=== PATIENT | male | born 1965 | race Caucasian/White ===

== ENCOUNTER 2020-01-26 13:14 | Emergency (ER) | payer OTHER, SELFPAY ==
--- NOTE | 2020-01-26 | CT_ITS ---
EXAMINATION: CT ABDOMEN AND PELVIS WITH CONTRAST CLINICAL INFORMATION: Abdominal pain COMPARISON: 04/30/2019 TECHNIQUE: Multidetector volumetric images were obtained from the superior aspect of the liver through the pubic symphysis following administration 85 mL of Omnipaque 350 intravenous contrast. Sagittal and coronal reformatted images were obtained on the technologist's workstation. Oral contrast: No This CT examination was performed using dose optimization techniques as appropriate, variously including the following: *Automated exposure control *Adjustment of mA and/or kV according to patient size (this includes techniques or standardized protocols for targeted exams where dose is matched to indication/reason for exam; i.e. extremities or head) *Use of iterative reconstruction technique DLP: 736 mGy-cm FINDINGS: LUNG BASES: The visualized lung bases are unremarkable. LIVER, GALLBLADDER, AND BILIARY TREE: Nodular slightly heterogeneous liver compatible with cirrhosis, not significantly changed. The gallbladder is partially contracted around multiple gallstones. No biliary ductal dilatation. PANCREAS: Unremarkable. SPLEEN: Splenomegaly has worsened. ADRENAL GLANDS: Unremarkable. KIDNEYS AND URETERS: The kidneys are normal in size, shape, and attenuation. No hydronephrosis, hydroureter, or calculi seen. No perinephric stranding. BLADDER: Unremarkable. GASTROINTESTINAL TRACT: No bowel dilatation to suggest obstruction. Scattered colonic diverticulosis. Small bowel loops and ascites project into right inguinal hernia, into the right scrotum as demonstrated previously. ABDOMINAL WALL: No additional hernia. LYMPH NODES: Normal. VASCULAR: Recanalization of the paraumbilical vein. Portosystemic shunting. The portal vein appears patent. PELVIC VISCERA: Unremarkable. OSSEOUS STRUCTURES: There is a burst fracture of the L3 vertebral body with marked loss of vertebral body height centrally, and retropulsion of the posterior superior aspect of the vertebral body markedly narrowing the central canal. This does not appear acute, although is new since 04/30/2019. In addition, there are nondisplaced fractures of the right and left L3 transverse processes. Some bridging callus formation anteriorly. IMPRESSION: There is a burst fracture of the L3 vertebral body with retropulsion and severe central stenosis which appears subacute, although new since 04/30/2019. Cirrhosis with increasing splenomegaly, portosystemic shunting, and ascites. Small bowel loops and ascites project into the right inguinal hernia/hemiscrotum, similar to the previous study. Cholelithiasis.
--- NOTE | 2020-01-26 | US_ITS ---
EXAMINATION: ABDOMINAL ULTRASOUND CLINICAL INFORMATION: Abdominal pain COMPARISON: CT abdomen pelvis earlier today TECHNIQUE: Ultrasound the abdomen was performed FINDINGS: The pancreas appears unremarkable. The visualized aorta and IVC appear normal. Liver demonstrates increased echogenicity with nodular border and associated ascites. No focal mass or bile duct dilatation is seen. Flow in the portal vein is of normal and hepatopedal. Common bile duct measures 0.4 cm. Marked splenomegaly is present with the spleen measuring 19 cm in greatest length. Small layering gallstones are present in the gallbladder but there is no evidence to suggest cholecystitis. Both kidneys appear normal with the right measuring 10.6 and the left 11.4 cm in length. IMPRESSION: Cirrhotic nodular liver with ascites and associated splenomegaly consistent with portal hypertension. Incidentally noted cholelithiasis. All of these findings were seen on the CT scan performed earlier today
[2020-01-26 13:22] VITALS: BP 133/5; BP 144/70; PULSE 81; PULSE 84; RESP 16; TEMP 36.7; O2SAT 100; BMI 27.3
[2020-01-26 14:21] VITALS: BP 116/55; PULSE 72; RESP 14; TEMP 36.7; O2SAT 98
[2020-01-26] MEDS: 0.9 % Sodium Chloride 1,000 ML 999 ML IVCONT (14:34)
[2020-01-26 14:35] LABS: Basophils Percent Auto 0.5 % (0-2); Eosinophils Absolute Auto 0.2 X10*3/uL (0.0-0.4); Eosinophils Percent Auto 3.5 % (0-4); Hematocrit 25.3 % (42-52); Hemoglobin 8.5 g/dl (14.0-18.0); Imm Gran Abs Auto 0.02 X10*3/uL (0.00-0.03); Imm Gran Pct Auto 0.3 % (0.0-0.4); Lymphocytes Absolute Auto 0.6 X10*3/uL (1.2-4.9); Lymphocytes Percent Auto 9.2 % (20-40); MANUAL DIFF FLAG SCAN; Mean Corpuscular HGB Conc 33.6 g/dl (31.0-36.0); Mean Corpuscular Hemoglobin 33.2 pg (27.0-33.0); Mean Corpuscular Volume 98.8 fL (80-98); Mean Platelet Volume 10.3 fL (9.4-12.4); Monocytes Absolute Auto 0.8 X10*3/uL (0.1-1.2); Monocytes Percent Auto 12.5 % (2-11); Neutrophils Absolute Auto 4.5 X10*3/uL (2.0-8.3); Red Blood Count 2.56 X10*6/uL (4.60-5.80); Red Cell Distribution Width 14.7 % (11.0-16.0); SCAN SMEAR FLAG 1; White Blood Count 6.1 X10*3/uL (4.8-10.8)
[2020-01-26 14:38] LABS: Platelet Count 96 X10*3/uL (160-400)
[2020-01-26] MEDS: Morphine Sulfate 2 MG/ML CARTRIDGE IVPUSH (14:47)
[2020-01-26] MEDS: ondansetron HCL 4 MG/2 ML VIAL IVPUSH (14:47)
[2020-01-26 15:01] LABS: Glucose Urine UA NEG (NEG); Leukocyte Esterase Urine NEG (NEG); Nitrite Urine NEG (NEG); Specific Gravity - Urine 1.015 (1.005-1.025); Urine Blood NEG (NEG); Urine Ketones NEG (NEG); Urine Protein NEG (NEG-TRACE)
[2020-01-26 15:02] LABS: Appearance Urine CLEAR; Color Urine YELLOW; UACC Culture Trigger NO
[2020-01-26 15:03] LABS: SLIDE REVIEW VERIFIED
[2020-01-26 15:10] LABS: Alanine Aminotransferase 18 U/L (0-40); Albumin Level 2.7 g/dL (3.5-5.0); Alkaline Phosphatase 114 U/L (39-117); Aspartate Amino Transferase 42 U/L (5-37); Bilirubin Direct 0.4 mg/dL (0.0-0.5); Bilirubin Total 0.8 mg/dL (0.0-1.0); Blood Urea Nitrogen 6 mg/dL (9-16); Calcium 7.9 mg/dL (8.4-10.2); Creatinine Clr Calc Pharmacy 113.6; Estimated Glomerular Filt Rate > 60; Glucose Random 117 mg/dL (60-115); Lipase 50 U/L (8-78); Magnesium 1.6 mg/dL (1.6-2.6)
[2020-01-26 15:22] LABS: Anion Gap 9 (12-20); Carbon Dioxide 28 mmol/L (22-29); Chloride 104 mmol/L (96-108); Sodium 137 mmol/L (135-145)
--- NOTE | 2020-01-26 15:32 | ED_ITS ---
HPI - Abdominal Pain General Chief Complaint: Abdominal Pain Stated Complaint: ABD PAIN Time Seen by Provider: 01/26/20 13:53 Source: patient Mode of arrival: ambulatory History of Present Illness HPI narrative: 54-year-old male with PMHx alcohol abuse, hernia c/o sudden onset lower abdominal pain radiating to upper abdomen and back this afternoon. Denies fever, chills, nausea / vomiting, diarrhea /constipation, chest pain / shortness of breath, dysuria/hematuria MD elicited complaint: abdominal pain Severity: moderate Quality: cramping Exacerbating factors: movement Related Data Home Medications Medication Instructions Recorded Confirmed No Known Home Meds 01/24/20 Allergies Allergy/AdvReac Type Severity Reaction Status Date / Time No Known Allergies Allergy Verified 01/24/20 10:52 [No Known Allergies*] Review of Systems Review of Systems Constitutional: No Weight loss, No Fever, No Chills, No Night Sweats, No Fatigue Cardiovascular: No Chest Pain, No SOB, No Dyspnea on Exertion, No Orthopnea, No Edema, No Palpitations Respiratory: No Cough, No Sputum, No Wheezing Gastrointestinal: No Nausea, No Vomiting, No Diarrhea, No Constipation, + abdom inal Pain Genitourinary: no irregular bleeding, No Dysuria, No Urinary Frequency, No Hematuria, No Urinary Incontinence, No Urgency, No Flank Pain, No Urinary Flow Changes, No Hesitancy Musculoskeletal: No joint pain Skin: No rash Yes all other systems are reviewed and are negative Physical Exam Vital Signs and I&O and Narrative: Vital Signs and I&O: Vital Signs Temp 98.0 F 01/26/20 16:12 Pulse 79 01/26/20 16:12 Resp 18 01/26/20 16:12 BP 114/45 L 01/26/20 16:12 Pulse Ox 97 01/26/20 16:12 Intake & Output 01/25/20 01/26/20 01/26/20 18:59 06:59 18:59 Intake Total 1000 / 1000 Balance 1000 / 1000 Weight 83.915 kg Intake: Intake, IV Amoun t 1000 / 1000 0.9 % Sodium C hloride 1,000 ml 1000 / 1000 @ 999 mls/hr I VCONT .Q1H1M AL Rx#:[id number] Body Mass Index 27.3 Const: General: cooperative and healthy appearing Orientation/cons ciousness: patient oriented x3 Limitations: no limitations HENMT: Head: Yes normal to inspection Ears: hearing grossly normal bilaterally General nose exam: Normal external nose present Face and sinus: Yes normal facial exam Eyes: General: appearance normal, both eyes and all related structures EOM: EOMs intact bilaterally Neck: Neck: Yes normal visual inspection Resp: Effort & Inspection: normal respiratory effort and no stridor Auscultation: clear to auscultation bilaterally, no crackles, no rales, no rhonchi and no wheezes Cardio: Rate: regular rate Heart sounds: S1 normal heart sound present and S2 normal heart sound present Peripheral pulses: Peripheral pulses 2+ throughout GI: Other: reducible umbilical hernia noted Inspection: Yes normal to inspection Palpation (GI): Soft to palpation, Tenderness to palpation present (GI) ( diffuse today), no guarding and not rigid : General: Yes CVA tenderness ( bilateral) Back/Spine/Pelvis: Back: CVA tenderness ( bilateral) Neuro: General: patient oriented x3 Extrem: General: Yes normal to inspection Course Course Course Narrative: -1551-- H&H lower than baseline>> patient denies bloody / black stools /hematuria labs otherwise unremarkable, UA negative -1649-- CT showing burst fracture of L3 vertebral body which is subacute. Cirrhosis with increasing splenomegaly, portosystemic shunting, and ascites. hernia is similar to previous study which are reproducible on exam low concern for SBP Occult stool negative >> on re-evaluation patient still reports diffuse abdominal pain greater in the epigastrium. Abdomen is soft with diffuse ttp > epigastrum/RUQ >> with shared decision making will obtain RUQ ultrasound and re- evaluate. -1720-- ED care transferred to DESHAWN Nguyen pending ultrasound and re-evaluation MDM - Abdominal Pain MDM Narrative Medical decision making narrative: 54-year-old male with PMHx alcohol abuse, hernia c/o sudden onset lower abdominal pain radiating to upper abdomen and back this afternoon. on exam VSS, NAD / well appearing. Abdomen soft diffusely, no rebound or guarding. Bilateral CVAT. Concern for diverticulitis /appendicitis vs cholecystitis/pancreatitis vs ?renal stone or SBO. Low concern for ACS Plan: Labs, UA, CT AP, symptomatic treatment and reassess Lab Data Result diagrams: 01/26/20 14:29 01/26/20 14:29 Labs: Lab Results 01/26/20 01/26/20 01/26/20 Range/Units 14:29 14:29 14:29 WBC 6.1 (4.8-10.8) X10*3/uL RBC 2.56 L (4.60-5.80) X10*6/uL Hgb 8.5 L (14.0-18.0) g/dl Hct 25.3 L (42-52) % MCV 98.8 H (80-98) fL MCH 33.2 H (27.0-33.0) pg MCHC 33.6 (31.0-36.0) g/dl RDW 14.7 (11.0-16.0) % Plt Count 96 L (160-400) X10*3/uL MPV 10.3 (9.4-12.4) fL Immature Gran % (Auto) 0.3 (0.0-0.4) % Neut % (Auto) 74.0 H (45-73) % Lymph % (Auto) 9.2 L (20-40) % [place] % (Auto) 12.5 H (2-11) % Eos % (Auto) 3.5 (0-4) % Baso % (Auto) 0.5 (0-2) % Neut # (Auto) 4.5 (2.0-8.3) X10*3/uL Lymph # (Auto) 0.6 L (1.2-4.9) X10*3/uL [place] # (Auto) 0.8 (0.1-1.2) X10*3/uL Eos # (Auto) 0.2 (0.0-0.4) X10*3/uL Baso # (Auto) 0.0 (0.0-0.2) X10*3/uL Abs Immat Gran (auto) 0.02 (0.00-0.03) X10*3/uL Absolute Nucleated RBC 0.000 (0.0-0.012) X10*3/uL Nucleated RBC % (auto) 0.0 (0.0-0.2) /100WBC Smear Tech's Comments VERIFIED Hold Blue Top SEE NOTE Sodium 137 (135-145) mmol/L Potassium 4.0 (3.3-5.1) mmol/l Chloride 104 (96-108) mmol/L Carbon Dioxide 28 (22-29) mmol/L Anion Gap 9 L (12-20) BUN 6 L (9-16) mg/dL Creatinine 0.76 (0.5-1.4) mg/dL Estim Creat Clear Calc 113.6 Estimated GFR > 60 Random Glucose 117 H (60-115) mg/dL Calcium 7.9 L (8.4-10.2) mg/dL Magnesium 1.6 (1.6-2.6) mg/dL Total Bilirubin 0.8 (0.0-1.0) mg/dL Direct Bilirubin 0.4 (0.0-0.5) mg/dL AST 42 H (5-37) U/L ALT 18 (0-40) U/L Alkaline Phosphatase 114 (39-117) U/L Total Protein 6.0 L (6.5-8.0) g/dL Albumin 2.7 L (3.5-5.0) g/dL Lipase 50 (8-78) U/L Urine Color Urine Appearance Urine pH (5.0-8.0) Ur Specific [place] (1.005-1.025) Urine Protein (NEG-TRACE) MG/DL Urine Glucose (UA) (NEG) MG/DL Urine Ketones (NEG) MG/DL Urine Blood (NEG) Urine Nitrite (NEG) Ur Leukocyte Esterase (NEG) Stool Occult Blood (NEG) 01/26/20 01/26/20 Range/Units 14:52 16:10 WBC (4.8-10.8) X10*3/uL RBC (4.60-5.80) X10*6/uL Hgb (14.0-18.0) g/dl Hct (42-52) % MCV (80-98) fL MCH (27.0-33.0) pg MCHC (31.0-36.0) g/dl RDW (11.0-16.0) % Plt Count (160-400) X10*3/uL MPV (9.4-12.4) fL Immature Gran % (Auto) (0.0-0.4) % Neut % (Auto) (45-73) % Lymph % (Auto) (20-40) % [place] % (Auto) (2-11) % Eos % (Auto) (0-4) % Baso % (Auto) (0-2) % Neut # (Auto) (2.0-8.3) X10*3/uL Lymph # (Auto) (1.2-4.9) X10*3/uL [place] # (Auto) (0.1-1.2) X10*3/uL Eos # (Auto) (0.0-0.4) X10*3/uL Baso # (Auto) (0.0-0.2) X10*3/uL Abs Immat Gran (auto) (0.00-0.03) X10*3/uL Absolute Nucleated RBC (0.0-0.012) X10*3/uL Nucleated RBC % (auto) (0.0-0.2) /100WBC Smear Tech's Comments Hold Blue Top Sodium (135-145) mmol/L Potassium (3.3-5.1) mmol/l Chloride (96-108) mmol/L Carbon Dioxide (22-29) mmol/L Anion Gap (12-20) BUN (9-16) mg/dL Creatinine (0.5-1.4) mg/dL Estim Creat Clear Calc Estimated GFR Random Glucose (60-115) mg/dL Calcium (8.4-10.2) mg/dL Magnesium (1.6-2.6) mg/dL Total Bilirubin (0.0-1.0) mg/dL Direct Bilirubin (0.0-0.5) mg/dL AST (5-37) U/L ALT (0-40) U/L Alkaline Phosphatase (39-117) U/L Total Protein (6.5-8.0) g/dL Albumin (3.5-5.0) g/dL Lipase (8-78) U/L Urine Color YELLOW Urine Appearance CLEAR Urine pH 6.0 (5.0-8.0) Ur Specific [place] 1.015 (1.005-1.025) Urine Protein NEG (NEG-TRACE) MG/DL Urine Glucose (UA) NEG (NEG) MG/DL Urine Ketones NEG (NEG) MG/DL Urine Blood NEG (NEG) Urine Nitrite NEG (NEG) Ur Leukocyte Esterase NEG (NEG) Stool Occult Blood NEG (NEG) Discharge Plan Discharge Prescriptions: No Action No Known Home Meds RF: 0 PMFSH Past Medical History Source: unable to obtain Medical History (Updated 01/26/20 @ 13:25 by Sadi Ray) ETOH abuse Hernia Social History Social History Alcohol intake: former Smoking Status: Current every day smoker Use of substances other than those prescribed or required for medical reasons: No Advance Directives: No Advance Directives Information Provided: Yes
[2020-01-26] MEDS: iohexoL 350 MG/ML 100 ML INFUS..BTL IV (15:36)
--- NOTE | 2020-01-26 16:04 | ECG_ITS ---
Test Reason : EPIGASTRIC Blood Pressure : / mmHG Vent. Rate : 079 BPM Atrial Rate : 079 BPM P-R Int : 158 ms QRS Dur : 086 ms QT Int : 454 ms P-R-T Axes : 071 000 052 degrees QTc Int : 520 ms Normal sinus rhythm Normal ECG When compared with ECG of 31-MAR-2019 10:22, Heart rate has increased Referred By: Janel Mancera Electronically Signed By:DINAH GONZALEZ MD
[2020-01-26 16:12] VITALS: BP 114/45; PULSE 79; RESP 18; TEMP 36.7; O2SAT 97
[2020-01-26 16:33] LABS: OBS Int Ctl Valid YES; OBS1 NEG (NEG)
--- NOTE | 2020-01-26 17:46 | PC.NURSE ---
OFF UNIT TO US, WILL HOLD TORADOL TILL PT RETURNS
[2020-01-26 18:08] VITALS: BP 125/61; PULSE 75; RESP 18; TEMP 37; O2SAT 96
[2020-01-26] MEDS: Ketorolac Tromethamine 15 MG/ML VIAL IV (18:10)
== END 2020-01-26 19:55 | disposition home or self-care (01) ==
PROVIDERS: Physician Assistant; Emergency Provider Emergency Medicine
DX: R10.9 Unspecified abdominal pain (principal); K70.30 Alcoholic cirrhosis of liver without ascites; F10.10 Alcohol abuse, uncomplicated; K76.89 Other specified diseases of liver; F17.200 Nicotine dependence, unspecified, uncomplicated; R93.2 Abnormal findings on diagnostic imaging of liver and biliary tract; K80.20 Calculus of gallbladder without cholecystitis without obstruction
CPT/HCPCS: 36415; 74177; 76700; 80048; 80076; 81003; 82272; 83690; 83735; 85025; 93005; 96361; 96374; 96375; 99284

== ENCOUNTER 2020-02-14 10:00 | Emergency (ER) | payer OTHER, SELFPAY ==
--- NOTE | 2020-02-14 12:55 | CT_ITS ---
EXAMINATION: CT ABDOMEN AND PELVIS WITH CONTRAST CLINICAL INFORMATION: Lower abdominal pain COMPARISON: None TECHNIQUE: Multidetector volumetric images were obtained from the superior aspect of the liver through the pubic symphysis following administration 85 mL of Omnipaque 350 intravenous contrast. Sagittal and coronal reformatted images were obtained on the technologist's workstation. Oral contrast: No This CT examination was performed using dose optimization techniques as appropriate, variously including the following: *Automated exposure control *Adjustment of mA and/or kV according to patient size (this includes techniques or standardized protocols for targeted exams where dose is matched to indication/reason for exam; i.e. extremities or head) *Use of iterative reconstruction technique DLP: 1245 mGy-cm FINDINGS: LUNG BASES: There is left basilar atelectasis. The heart size is normal. LIVER, GALLBLADDER, AND BILIARY TREE: The liver has lobulated surface, slightly hypodense and without focal lesions. There is diffuse ascites. There are numerous collateral vessels seen along the celiac axis and the GE junction. There are multiple dependent radiopaque gallstones without wall thickening PANCREAS: The head and the body of the pancreas is normal. The tail is atrophic or removed. SPLEEN: Spleen is mildly enlarged 13.8 cm in length. ADRENAL GLANDS: Unremarkable. KIDNEYS AND URETERS: The kidneys are normal in size, shape, and attenuation. No hydronephrosis, hydroureter, or calculi seen. No perinephric stranding. There is a small left 1.4 cm cyst lower pole cortex right kidney BLADDER: Unremarkable. GASTROINTESTINAL TRACT: There is scattered stool and gas seen throughout the colon. The small bowel loops are prominent but nondilated. There is diffuse ascites. Appendix is normal caliber. Small bowel loops and omentum is seen within the right inguinal hernia. No inflammatory changes seen. ABDOMINAL WALL: No significant hernia is appreciated. LYMPH NODES: Normal. VASCULAR: Unremarkable. PELVIC VISCERA: There is a free fluid. No abnormal pelvic mass seen. There is a known right inguinal hernia with small bowel loops and omentum within. OSSEOUS STRUCTURES: There is severe compression fracture deformity L3 vertebra. Acute. CT/CT abdomen pelvis w con IMPRESSION: Cirrhosis, portal hypertension, with multiple varices splenomegaly and diffuse ascites. Cholelithiasis without any visible gallbladder wall thickening. Right renal cysts without radiopaque renal calculi or hydronephrosis. There is a right inguinal hernia containing omentum and loop of small bowel within. No major change from previous exam 04/30/2019 New acute fracture compression deformity L3 vertebra. It is new since previous study 04/30/2019
[2020-02-14 12:56] VITALS: BP 113/62; PULSE 56; RESP 14; TEMP 36.6; O2SAT 100; BMI 27.3
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
[2020-02-14 13:23] VITALS: RESP 16
[2020-02-14] MEDS: Morphine Sulfate 4 MG/ML CARTRIDGE IVPUSH (13:23)
[2020-02-14] MEDS: 0.9 % Sodium Chloride 500 ML 1000 ML IV (13:23)
[2020-02-14] MEDS: LORazepam 2 MG/ML VIAL 0.5 MG IVPUSH (13:23)
[2020-02-14 13:25] LABS: MANUAL DIFF FLAG NO
[2020-02-14 13:26] LABS: Basophils Absolute Auto 0.1 X10*3/uL (0.0-0.2); Basophils Percent Auto 0.8 % (0-2); Eosinophils Absolute Auto 0.4 X10*3/uL (0.0-0.4); Eosinophils Percent Auto 3.8 % (0-4); Hematocrit 28.3 % (42-52); Hemoglobin 9.3 g/dl (14.0-18.0); Imm Gran Abs Auto 0.03 X10*3/uL (0.00-0.03); Imm Gran Pct Auto 0.3 % (0.0-0.4); Lymphocytes Absolute Auto 1.3 X10*3/uL (1.2-4.9); Lymphocytes Percent Auto 13.7 % (20-40); Mean Corpuscular HGB Conc 32.9 g/dl (31.0-36.0); Mean Corpuscular Hemoglobin 31.1 pg (27.0-33.0); Mean Corpuscular Volume 94.6 fL (80-98); Mean Platelet Volume 10.7 fL (9.4-12.4); Monocytes Percent Auto 11.2 % (2-11); Neutrophils Absolute Auto 6.4 X10*3/uL (2.0-8.3); Neutrophils Percent Auto 70.2 % (45-73); Platelet Count 161 X10*3/uL (160-400); Red Blood Count 2.99 X10*6/uL (4.60-5.80); Red Cell Distribution Width 15.7 % (11.0-16.0); White Blood Count 9.1 X10*3/uL (4.8-10.8)
[2020-02-14 13:34] LABS: Glucose Urine UA NEG (NEG); Leukocyte Esterase Urine NEG (NEG); Nitrite Urine NEG (NEG); PH 6.5 (5.0-8.0); Urine Blood NEG (NEG); Urine Ketones NEG (NEG); Urine Protein NEG (NEG-TRACE)
[2020-02-14 13:37] LABS: Appearance Urine HAZY; Color Urine YELLOW
[2020-02-14 13:52] LABS: Lactic Acid 1.3 mmol/L (0.5-2.0)
[2020-02-14 13:55] LABS: RBC Urine 0 /HPF (0); WBC Urine 0 /HPF (0-4)
[2020-02-14 13:58] LABS: INTERNATIONAL NORM RATIO 1.4 (0.9-1.1); Prothrombin Time 17.1 SEC (10.8-13.0)
[2020-02-14 14:26] LABS: Alanine Aminotransferase 11 U/L (0-40); Albumin Level 2.6 g/dL (3.5-5.0); Alkaline Phosphatase 132 U/L (39-117); Anion Gap 12 (12-20); Aspartate Amino Transferase 47 U/L (5-37); Bilirubin Total 1.5 mg/dL (0.0-1.0); Blood Urea Nitrogen 6 mg/dL (9-16); Carbon Dioxide 28 mmol/L (22-29); Chloride 100 mmol/L (96-108); Creatinine Clr Calc Pharmacy 115.2; Estimated Glomerular Filt Rate > 60; Glucose Random 93 mg/dL (60-115); Potassium 4.4 mmol/l (3.3-5.1); Sodium 136 mmol/L (135-145); Total Protein 6.9 g/dL (6.5-8.0)
[2020-02-14] MEDS: iohexoL 350 MG/ML 100 ML INFUS..BTL IV (14:57)
== END 2020-02-14 17:50 | disposition home or self-care (01) ==
PROVIDERS: Nurse Practitioner Primary Care; Emergency Provider Internal Medicine; PCP Family Medicine
DX: K40.20 Bilateral inguinal hernia, without obstruction or gangrene, not specified as recurrent (principal); Z79.899 Other long term (current) drug therapy; Z87.891 Personal history of nicotine dependence
CPT/HCPCS: 36415; 74177; 80053; 81001; 83605; 85025; 85610; 85730; 96374; 96375; 99283; 99284; J2060; J2270

== ENCOUNTER → 2020-02-23 14:56 | Outpatient (BNVA) | payer OTHER, SELFPAY | PROVIDERS: PCP Family Medicine; Visit Provider Surgery | DX: K40.90 Unilateral inguinal hernia, without obstruction or gangrene, not specified as recurrent (principal); K70.30 Alcoholic cirrhosis of liver without ascites | CPT/HCPCS: 99202 ==

== ENCOUNTER 2020-03-21 09:22 | Outpatient (REF) | payer MEDICAID, SELFPAY ==
[2020-03-21 10:04] LABS: MANUAL DIFF FLAG NO
[2020-03-21 10:09] LABS: Basophils Percent Auto 0.5 % (0-2); Eosinophils Absolute Auto 0.3 X10*3/uL (0.0-0.4); Eosinophils Percent Auto 4.8 % (0-4); Hematocrit 23.8 % (42-52); Hemoglobin 7.5 g/dl (14.0-18.0); Imm Gran Abs Auto 0.05 X10*3/uL (0.00-0.03); Imm Gran Pct Auto 0.8 % (0.0-0.4); Lymphocytes Absolute Auto 0.8 X10*3/uL (1.2-4.9); Lymphocytes Percent Auto 13.3 % (20-40); Mean Corpuscular HGB Conc 31.5 g/dl (31.0-36.0); Mean Corpuscular Volume 88.8 fL (80-98); Mean Platelet Volume 11.3 fL (9.4-12.4); Monocytes Absolute Auto 0.7 X10*3/uL (0.1-1.2); Monocytes Percent Auto 11.8 % (2-11); Neutrophils Absolute Auto 4.1 X10*3/uL (2.0-8.3); Neutrophils Percent Auto 68.8 % (45-73); Platelet Count 142 X10*3/uL (160-400); Red Blood Count 2.68 X10*6/uL (4.60-5.80); Red Cell Distribution Width 17.4 % (11.0-16.0)
[2020-03-21 10:22] LABS: INTERNATIONAL NORM RATIO 1.3 (0.9-1.1)
[2020-03-21 10:24] LABS: Ammonia 44 umol/L (13-55)
[2020-03-21 10:55] LABS: Alanine Aminotransferase 7 U/L (0-40); Albumin Level 2.4 g/dL (3.5-5.0); Alkaline Phosphatase 131 U/L (39-117); Anion Gap 10 (12-20); Aspartate Amino Transferase 25 U/L (5-37); Bilirubin Direct 0.4 mg/dL (0.0-0.5); Bilirubin Total 0.9 mg/dL (0.0-1.0); Blood Urea Nitrogen 6 mg/dL (9-16); Calcium 7.7 mg/dL (8.4-10.2); Carbon Dioxide 29 mmol/L (22-29); Chloride 100 mmol/L (96-108); Estimated Glomerular Filt Rate > 60; Glucose Random 115 mg/dL (60-115); Iron 24 mcg/dL (45-160); Percent Iron Saturation 7 % (15-50); Sodium 135 mmol/L (135-145); Total Iron Binding Capacity 324 mcg/dL (228-428); Total Protein 6.4 g/dL (6.5-8.0); Unsaturated Iron Binding 300 ug/dL
[2020-03-21 11:13] LABS: HBS Num1 1.11 mIU/mL (0-7.99); HBc Num1 1.22 S/CO (0.00-0.79); Hepatitis B Surface Antigen Negative (Negative); ~Hepatitis B Surface Antibody NONREACTIVE (Nonreactive)
[2020-03-21 11:18] LABS: Ferritin 16 ng/mL (20-250)
[2020-03-21 11:37] LABS: ~Hepatitis C Antibody Nonreactive (Nonreactive)
[2020-03-21 13:21] LABS: HBc Num2 1.21 S/CO; HBc Num3 1.22 S/CO; Hepatitis B Core Antibody Reactive (Nonreactive)
[2020-03-22 07:48] LABS: Hepatitis A Antibody IgG REACTIVE (Nonreactive); ~Hepatitis A Antibody IgG 1.39 S/CO (0.00-0.99)
[2020-03-22 13:47] LABS: Alpha 1 Anti-trypsin 174 mg/dL (83-199)
[2020-03-23 05:18] LABS: Hepatitis B Core Antibody IgM NON-REACTIVE (NON-REACTIVE)
[2020-03-23 13:27] LABS: Alpha Fetoprotein 2.7 ng/mL (<6.1); Anti Nuclear Antibody Screen NEGATIVE (NEGATIVE)
[2020-03-24 15:13] LABS: Mitochondrial Antibodies NEGATIVE (NEGATIVE)
[2020-03-26 09:22] LABS: Smooth Muscle Antibody <20 U (<20)
== END 2020-03-21 09:23 | disposition home or self-care (01) ==
LOC: HO.LAB 09:22
PROVIDERS: PCP Family Medicine; Visit Provider Internal Medicine
DX: Z01.84 Encounter for antibody response examination (principal); K70.31 Alcoholic cirrhosis of liver with ascites
CPT/HCPCS: 36415; 80048; 80076; 82103; 82105; 82140; 82728; 83540; 85025; 85610; 86038; 86039; 86255; 86256; 86704; 86705; 86706; 86708; 86803; 87340

== ENCOUNTER 2020-04-13 07:55 | Outpatient (REF) | payer OTHER, SELFPAY ==
--- NOTE | 2020-04-13 | US_ITS ---
EXAMINATION: US ABDOMEN COMPLETE WITH VISCERAL DOPPLER STUDY CLINICAL INFORMATION: Cirrhosis. Question portal vein thrombosis. COMPARISON: None TECHNIQUE: Real-time imaging of the abdominal viscera. Real-time ultrasound and Doppler techniques (integrating B-mode 2D vascular images, Doppler spectral analysis and color flow Doppler imaging) were utilized to interrogate the visceral vessels. FINDINGS: Study is somewhat limited due to large body habitus and overlying bowel gas. Vascular: There is recanalization of the umbilical vein. A few portal varices are present. The extrahepatic portal vein is patent with hepatopedal flow. The left portal vein is patent with hepatopedal flow. The right portal vein is thrombosed with trickle flow. The splenic vein is patent with hepatopedal flow. Main hepatic artery is patent with antegrade flow and elevated peak systolic velocity of 211 cm/s. The left hepatic artery was not definitely identified. The right hepatic artery has antegrade flow within it. There is flow within the inferior vena cava. The hepatic veins are difficult to study with the right and left hepatic veins appearing normal as well as flow in the middle hepatic vein with limited visualization. PANCREAS: No abnormal pancreatic mass identified. Pancreatic duct is not dilated. ABDOMINAL AORTA: The proximal, mid, and distal segments are normal in caliber. INFERIOR VENA CAVA: Visualized portions are normal. LIVER: Liver measures approximately 16.2 cm in vertical span. There is a coarsened echotexture consistent with cirrhosis. The liver contour is nodular. No focal hepatic lesion. There is no intrahepatic biliary duct dilatation seen. GALLBLADDER: There is layering of a small gallbladder calculi. There are a few cholesterol polyps present. No wall thickening is appreciated. COMMON BILE DUCT: Normal in caliber measuring 0.3 cm in diameter. RIGHT KIDNEY: Normal. No hydronephrosis. No renal calculi or focal parenchymal lesions. The kidney measures 10.9 cm in maximum dimension. LEFT KIDNEY: Normal. No hydronephrosis. No renal calculi or focal parenchymal lesions. The kidney measures 11.3 cm in maximum dimension. SPLEEN: Enlarged. The spleen measures 18 cm in maximum dimension. FREE FLUID: There is a small amount of ascites present. US/US duplex arterial venous comp IMPRESSION: Hepatic cirrhosis with portal hypertension recanalization of the umbilical vein with hepatopedal flow present within the main portal vein and left portal vein. Patent splenic vein. Occlusion of the right portal vein. Elevated velocity within the proper hepatic artery. Splenomegaly. Small amount of ascites.
== END 2020-04-13 07:56 | disposition home or self-care (01) ==
LOC: HO.US 07:55
PROVIDERS: PCP Family Medicine; Visit Provider Internal Medicine
DX: K70.31 Alcoholic cirrhosis of liver with ascites (principal)
CPT/HCPCS: 76700; 93975

== ENCOUNTER 2020-04-27 10:18 | Outpatient (REF) | payer OTHER, SELFPAY ==
--- NOTE | 2020-04-27 | MR_ITS ---
EXAMINATION: MR ABDOMEN WITHOUT AND WITH CONTRAST CLINICAL INFORMATION: Alcoholic cirrhosis and portal vein thrombus COMPARISON: Previous abdominal ultrasound most recent March [address] of the abdomen and pelvis most recent January 2020 TECHNIQUE: MR abdomen was performed without and with use of 10 mL intravenous Gadavist gadolinium contrast. Postcontrast images are performed in multiphase dynamic sequences. Imaging was performed in 3 planes. FINDINGS: LUNG BASES: The visualized lung bases are clear. There is a prominent right retrocrural lymph node that appears unchanged. There are small paraesophageal varices. LIVER, GALLBLADDER, AND BILIARY TREE: The liver is cirrhotic. No focal liver lesion is seen. The main portal vein is patent. There are paraesophageal and upper abdominal varices. There is a recannulized paraumbilical vein. There is a small amount of ascites. There are gallstones in the gallbladder. The gallbladder is normal in size. The gallbladder wall does not appear thickened. There is no intra or extrahepatic biliary duct dilatation. No common bile duct stone is seen. PANCREAS: Unremarkable. SPLEEN: The spleen is enlarged and measures 15 cm in length. ADRENAL GLANDS: Normal. KIDNEYS AND URETERS: There is a 2 cm cyst in the lower pole of the right kidney. GASTROINTESTINAL TRACT: There is mild diverticulosis of the colon. ABDOMINAL WALL: There is an umbilical hernia containing fat. LYMPH NODES: No lymphadenopathy. VASCULAR: Unremarkable. OSSEOUS STRUCTURES: There is an L3 vertebral body compression fracture. There is slight retropulsion of bone into the spinal canal. This is unchanged from previous CT January 2020 MR/MR abdomen wo/w con IMPRESSION: Cirrhotic appearing liver, splenomegaly, varices and small amount of ascites. The main portal vein is patent. No focal liver lesion is seen. Gallstones. Right renal cyst. L3 vertebral body compression fracture.
[2020-04-27 12:55] LABS: MANUAL DIFF FLAG NO
[2020-04-27 13:03] LABS: Basophils Percent Auto 0.5 % (0-2); Eosinophils Absolute Auto 0.3 X10*3/uL (0.0-0.4); Hematocrit 33.5 % (42-52); Hemoglobin 10.6 g/dl (14.0-18.0); Imm Gran Abs Auto 0.08 X10*3/uL (0.00-0.03); Lymphocytes Absolute Auto 0.9 X10*3/uL (1.2-4.9); Lymphocytes Percent Auto 11.4 % (20-40); Mean Corpuscular HGB Conc 31.6 g/dl (31.0-36.0); Mean Corpuscular Hemoglobin 29.1 pg (27.0-33.0); Mean Platelet Volume 11.8 fL (9.4-12.4); Monocytes Absolute Auto 0.8 X10*3/uL (0.1-1.2); Monocytes Percent Auto 9.8 % (2-11); Neutrophils Absolute Auto 5.9 X10*3/uL (2.0-8.3); Neutrophils Percent Auto 73.3 % (45-73); Platelet Count 113 X10*3/uL (160-400); Red Blood Count 3.64 X10*6/uL (4.60-5.80); Red Cell Distribution Width 22.2 % (11.0-16.0)
[2020-04-27 13:09] LABS: INTERNATIONAL NORM RATIO 1.2 (0.9-1.1); Prothrombin Time 14.4 SEC (10.8-13.0)
[2020-04-27 13:26] LABS: Alanine Aminotransferase 11 U/L (0-40); Albumin Level 2.8 g/dL (3.5-5.0); Alkaline Phosphatase 124 U/L (39-117); Anion Gap 14 (12-20); Aspartate Amino Transferase 37 U/L (5-37); Bilirubin Direct 0.5 mg/dL (0.0-0.5); Blood Urea Nitrogen 7 mg/dL (9-16); Calcium 8.3 mg/dL (8.4-10.2); Carbon Dioxide 26 mmol/L (22-29); Chloride 101 mmol/L (96-108); Estimated Glomerular Filt Rate > 60; Glucose Random 85 mg/dL (60-115); Iron 70 mcg/dL (45-160); Percent Iron Saturation 22 % (15-50); Potassium 3.9 mmol/l (3.3-5.1); Sodium 137 mmol/L (135-145); Total Iron Binding Capacity 323 mcg/dL (228-428); Total Protein 7.1 g/dL (6.5-8.0); Unsaturated Iron Binding 253 ug/dL
[2020-04-27 14:43] LABS: Ferritin 57 ng/mL (20-250)
== END 2020-04-27 10:19 | disposition home or self-care (01) ==
LOC: HO.MRI 10:18
PROVIDERS: Visit Provider Internal Medicine
DX: K70.31 Alcoholic cirrhosis of liver with ascites (principal); I81 Portal vein thrombosis
CPT/HCPCS: 36415; 74183; 80053; 80076; 82248; 82728; 83540; 85025; 85610; A9585

== ENCOUNTER 2020-06-08 10:23 | Outpatient (REF) | payer OTHER, SELFPAY ==
[2020-06-08 14:01] LABS: MANUAL DIFF FLAG SCAN; Red Cell Distribution Width 16.7 % (11.0-16.0); SCAN SMEAR FLAG 1
[2020-06-08 14:03] LABS: Basophils Absolute Auto 0.1 X10*3/uL (0.0-0.2); Eosinophils Absolute Auto 0.3 X10*3/uL (0.0-0.4); Eosinophils Percent Auto 4.8 % (0-4); Hematocrit 39.2 % (42-52); Hemoglobin 12.9 g/dl (14.0-18.0); Imm Gran Abs Auto 0.03 X10*3/uL (0.00-0.03); Imm Gran Pct Auto 0.4 % (0.0-0.4); Lymphocytes Absolute Auto 1.2 X10*3/uL (1.2-4.9); Lymphocytes Percent Auto 16.5 % (20-40); Mean Corpuscular HGB Conc 32.9 g/dl (31.0-36.0); Mean Corpuscular Hemoglobin 30.9 pg (27.0-33.0); Mean Corpuscular Volume 93.8 fL (80-98); Monocytes Absolute Auto 0.7 X10*3/uL (0.1-1.2); Monocytes Percent Auto 9.1 % (2-11); Neutrophils Absolute Auto 4.9 X10*3/uL (2.0-8.3); Neutrophils Percent Auto 68.2 % (45-73); PLT CLUMP 1; Red Blood Count 4.18 X10*6/uL (4.60-5.80)
[2020-06-08 14:11] LABS: INTERNATIONAL NORM RATIO 1.2 (0.9-1.1); Prothrombin Time 14.8 SEC (10.8-13.0)
[2020-06-08 14:12] LABS: PLT ABN DIST 1
[2020-06-08 14:13] LABS: Partial Thromboplastin Time 48.6 SEC (24.1-38.0)
[2020-06-08 14:27] LABS: Platelet Count 93 X10*3/uL (160-400); White Blood Count 7.1 X10*3/uL (4.8-10.8)
[2020-06-08 14:28] LABS: SLIDE REVIEW VERIFIED
[2020-06-08 14:33] LABS: Alanine Aminotransferase 18 U/L (0-40); Albumin Level 3.3 g/dL (3.5-5.0); Alkaline Phosphatase 115 U/L (39-117); Anion Gap 13 (12-20); Aspartate Amino Transferase 40 U/L (5-37); Blood Urea Nitrogen 9 mg/dL (9-16); Calcium 8.7 mg/dL (8.4-10.2); Carbon Dioxide 28 mmol/L (22-29); Chloride 101 mmol/L (96-108); Estimated Glomerular Filt Rate > 60; Glucose Random 104 mg/dL (60-115); Sodium 138 mmol/L (135-145); Total Protein 7.3 g/dL (6.5-8.0)
== END 2020-06-08 10:24 | disposition home or self-care (01) ==
LOC: HO.WFDLDS 10:23
PROVIDERS: Visit Provider Family Medicine
DX: K42.9 Umbilical hernia without obstruction or gangrene (principal); D64.9 Anemia, unspecified
CPT/HCPCS: 36415; 80053; 85025; 85610; 85730

== ENCOUNTER → 2020-06-19 11:25 | Outpatient (BNVA) | payer OTHER, SELFPAY | PROVIDERS: PCP Family Medicine; Visit Provider Surgery | DX: K40.90 Unilateral inguinal hernia, without obstruction or gangrene, not specified as recurrent (principal); K70.30 Alcoholic cirrhosis of liver without ascites | CPT/HCPCS: 99202 ==

== ENCOUNTER 2020-06-20 11:11 | Outpatient (REF) | payer OTHER, SELFPAY ==
[2020-06-20 13:44] LABS: Basophils Percent Auto 0.6 % (0-2); MANUAL DIFF FLAG SCAN; SCAN SMEAR FLAG 1
[2020-06-20 13:46] LABS: Basophils Absolute Auto 0.1 X10*3/uL (0.0-0.2); Eosinophils Absolute Auto 0.2 X10*3/uL (0.0-0.4); Eosinophils Percent Auto 1.9 % (0-4); Hematocrit 38.6 % (42-52); Imm Gran Abs Auto 0.04 X10*3/uL (0.00-0.03); Imm Gran Pct Auto 0.4 % (0.0-0.4); Lymphocytes Absolute Auto 0.9 X10*3/uL (1.2-4.9); Lymphocytes Percent Auto 9.8 % (20-40); Mean Corpuscular HGB Conc 33.7 g/dl (31.0-36.0); Mean Corpuscular Hemoglobin 31.3 pg (27.0-33.0); Mean Corpuscular Volume 92.8 fL (80-98); Monocytes Absolute Auto 0.9 X10*3/uL (0.1-1.2); Monocytes Percent Auto 9.1 % (2-11); Neutrophils Absolute Auto 7.4 X10*3/uL (2.0-8.3); Neutrophils Percent Auto 78.2 % (45-73); PLT CLUMP 1; Red Blood Count 4.16 X10*6/uL (4.60-5.80); Red Cell Distribution Width 16.1 % (11.0-16.0)
[2020-06-20 13:49] LABS: PLT ABN DIST 1; White Blood Count 9.4 X10*3/uL (4.8-10.8)
[2020-06-20 13:52] LABS: INTERNATIONAL NORM RATIO 1.2 (0.9-1.1); Prothrombin Time 14.6 SEC (10.8-13.0)
[2020-06-20 14:20] LABS: Platelet Count 80 X10*3/uL (160-400)
[2020-06-20 14:21] LABS: Alanine Aminotransferase 15 U/L (0-40); Albumin Level 3.5 g/dL (3.5-5.0); Alkaline Phosphatase 114 U/L (39-117); Anion Gap 13 (12-20); Aspartate Amino Transferase 44 U/L (5-37); Bilirubin Total 1.3 mg/dL (0.0-1.0); Blood Urea Nitrogen 8 mg/dL (9-16); Calcium 8.7 mg/dL (8.4-10.2); Carbon Dioxide 26 mmol/L (22-29); Chloride 98 mmol/L (96-108); Estimated Glomerular Filt Rate > 60; Glucose Random 91 mg/dL (60-115); Potassium 4.3 mmol/L (3.3-5.1); SLIDE REVIEW VERIFIED; Sodium 133 mmol/L (135-145); Total Protein 7.5 g/dL (6.5-8.0)
== END 2020-06-20 11:12 | disposition home or self-care (01) ==
LOC: HO.WFDLDS 11:11
PROVIDERS: Visit Provider Family Medicine
DX: K70.30 Alcoholic cirrhosis of liver without ascites (principal); D64.9 Anemia, unspecified; K40.90 Unilateral inguinal hernia, without obstruction or gangrene, not specified as recurrent
CPT/HCPCS: 36415; 80053; 85025; 85610

== ENCOUNTER 2020-07-26 12:11 | Outpatient (REF) | payer OTHER, SELFPAY ==
[2020-07-26 18:19] LABS: Blood Urea Nitrogen 4 mg/dL (9-16); Estimated Glomerular Filt Rate > 60
== END 2020-07-26 12:12 | disposition home or self-care (01) ==
LOC: HO.LAB 12:11
PROVIDERS: PCP Family Medicine; Visit Provider Surgery
DX: K70.30 Alcoholic cirrhosis of liver without ascites (principal); K40.90 Unilateral inguinal hernia, without obstruction or gangrene, not specified as recurrent
CPT/HCPCS: 36415; 82565; 84520; 99212

== ENCOUNTER 2020-08-15 10:10 | Outpatient (REF) | payer OTHER, SELFPAY ==
--- NOTE | ~2020-08-15 | CT_ITS ---
EXAMINATION: CT ABDOMEN AND PELVIS WITH CONTRAST CLINICAL INFORMATION: Alcoholic cirrhosis of liver COMPARISON: Previous MRI of the abdomen April [address] of the abdomen and pelvis most recent January 2020 and abdominal ultrasound most recent January 2020 TECHNIQUE: Multidetector volumetric images were obtained from the superior aspect of the liver through the pubic symphysis following administration 85 mL of Omnipaque 350 intravenous contrast. Sagittal and coronal reformatted images were obtained on the technologist's workstation. Oral contrast: Yes This CT examination was performed using dose optimization techniques as appropriate, variously including the following: *Automated exposure control *Adjustment of mA and/or kV according to patient size (this includes techniques or standardized protocols for targeted exams where dose is matched to indication/reason for exam; i.e. extremities or head) *Use of iterative reconstruction technique DLP: 602 mGy-cm FINDINGS: LUNG BASES: The visualized lung bases are unremarkable. LIVER, GALLBLADDER, AND BILIARY TREE: The liver is cirrhotic. No focal liver lesion is seen. The hepatic veins and portal veins are patent. There are extensive varices. There is a recannulized paraumbilical vein. There are gallstones in the gallbladder. There is no intra or extrahepatic biliary duct dilatation. PANCREAS: Unremarkable. SPLEEN: The spleen is enlarged and measures 14.5 cm in length. ADRENAL GLANDS: Unremarkable. KIDNEYS AND URETERS: There is a right renal cyst. The kidneys are otherwise unremarkable. BLADDER: Unremarkable. GASTROINTESTINAL TRACT: There is a right inguinal hernia containing small bowel. There are no dilated loops of bowel to suggest obstruction. The small and large bowel is otherwise unremarkable. The stomach is not optimally distended. There is question of mild wall thickening of the proximal stomach versus changes due to underdistention. ABDOMINAL WALL: Right inguinal hernia containing small bowel. LYMPH NODES: Normal. VASCULAR: There is evidence of atherosclerotic disease. No aneurysm is seen. There are extensive varices seen there is no ascites. PELVIC VISCERA: Unremarkable. OSSEOUS STRUCTURES: There is a severe L3 vertebral body compression fracture with some retropulsion of bone into the spinal canal. This appears unchanged from previous CT scan. CT/CT abdomen pelvis w con IMPRESSION: Cirrhotic-appearing liver. No focal liver lesion seen. Gallstones. Splenomegaly and multiple varices. No ascites. Large right inguinal hernia containing small bowel. No evidence of obstruction. Question wall thickening of the proximal stomach versus changes due to underdistention. Stable severe L3 vertebral body compression fracture. Stable right renal cyst.
[2020-08-15] MEDS: iohexoL 350 MG/ML 100 ML INFUS..BTL IV (11:19)
== END 2020-08-15 10:11 | disposition home or self-care (01) ==
LOC: HO.CT 10:10
PROVIDERS: Visit Provider Surgery
DX: K70.30 Alcoholic cirrhosis of liver without ascites (principal)
CPT/HCPCS: 74177; Q9967

== ENCOUNTER → 2020-09-04 08:23 | Outpatient (BNVA) | payer OTHER, SELFPAY | PROVIDERS: PCP Family Medicine; Visit Provider Surgery | DX: K40.90 Unilateral inguinal hernia, without obstruction or gangrene, not specified as recurrent (principal) | CPT/HCPCS: 99212 ==

== ENCOUNTER 2020-09-27 13:45 | Outpatient (REF) | payer OTHER, SELFPAY ==
[2020-09-27 14:19] LABS: MANUAL DIFF FLAG SCAN; PLT CLUMP 1; SCAN SMEAR FLAG 1
[2020-09-27 14:21] LABS: Basophils Percent Auto 0.6 % (0-2); Eosinophils Absolute Auto 0.2 X10*3/uL (0.0-0.4); Eosinophils Percent Auto 3.7 % (0-4); Hematocrit 35.4 % (42-52); Hemoglobin 12.2 g/dl (14.0-18.0); Imm Gran Abs Auto 0.02 X10*3/uL (0.00-0.03); Imm Gran Pct Auto 0.3 % (0.0-0.4); Lymphocytes Percent Auto 14.7 % (20-40); Mean Corpuscular HGB Conc 34.5 g/dl (31.0-36.0); Mean Corpuscular Hemoglobin 31.2 pg (27.0-33.0); Mean Corpuscular Volume 90.5 fL (80-98); Mean Platelet Volume 11.5 fL (9.4-12.4); Monocytes Absolute Auto 0.6 X10*3/uL (0.1-1.2); Monocytes Percent Auto 8.8 % (2-11); Neutrophils Absolute Auto 4.7 X10*3/uL (2.0-8.3); Neutrophils Percent Auto 71.9 % (45-73); Red Blood Count 3.91 X10*6/uL (4.60-5.80); Red Cell Distribution Width 15.7 % (11.0-16.0); White Blood Count 6.5 X10*3/uL (4.8-10.8)
[2020-09-27 14:22] LABS: Platelet Count 84 X10*3/uL (160-400)
[2020-09-27 14:23] LABS: INTERNATIONAL NORM RATIO 1.2 (0.9-1.1); Prothrombin Time 14.3 SEC (10.8-13.0)
[2020-09-27 15:54] LABS: Ammonia 71 umol/L (13-55)
[2020-09-27 16:06] LABS: Alanine Aminotransferase 13 U/L (0-40); Albumin Level 3.4 g/dL (3.5-5.0); Alkaline Phosphatase 95 U/L (39-117); Anion Gap 12 (12-20); Aspartate Amino Transferase 39 U/L (5-37); Bilirubin Direct 0.4 mg/dL (0.0-0.5); Blood Urea Nitrogen 7 mg/dL (9-16); Calcium 9.1 mg/dL (8.4-10.2); Carbon Dioxide 24 mmol/L (22-29); Chloride 103 mmol/L (96-108); Estimated Glomerular Filt Rate > 60; Glucose Random 109 mg/dL (60-115); Iron 101 mcg/dL (45-160); Percent Iron Saturation 30 % (15-50); Potassium 4.1 mmol/L (3.3-5.1); Sodium 135 mmol/L (135-145); Total Iron Binding Capacity 336 mcg/dL (228-428); Total Protein 6.8 g/dL (6.5-8.0); Unsaturated Iron Binding 235 ug/dL
[2020-09-27 16:59] LABS: Ferritin 72 ng/mL (20-250)
[2020-09-28 11:57] LABS: Alpha Fetoprotein 4.9 ng/mL (<6.1)
== END 2020-09-27 13:46 | disposition home or self-care (01) ==
LOC: HO.LAB 13:45
PROVIDERS: PCP Family Medicine; Visit Provider Internal Medicine
DX: K70.31 Alcoholic cirrhosis of liver with ascites (principal); I85.00 Esophageal varices without bleeding; D64.9 Anemia, unspecified; D50.9 Iron deficiency anemia, unspecified
CPT/HCPCS: 36415; 80048; 80076; 82105; 82140; 82728; 83540; 85025; 85610

== ENCOUNTER → 2020-10-31 11:11 | Outpatient (BNVA) | payer OTHER, SELFPAY | PROVIDERS: PCP Family Medicine; Visit Provider Nurse Practitioner Family | DX: M47.816 Spondylosis without myelopathy or radiculopathy, lumbar region (principal); M53.3 Sacrococcygeal disorders, not elsewhere classified; K70.30 Alcoholic cirrhosis of liver without ascites; S32.000D Wedge compression fracture of unspecified lumbar vertebra, subsequent encounter for fracture with routine healing | CPT/HCPCS: 99202 ==

== ENCOUNTER 2021-02-23 14:58 | Outpatient (REF) | payer OTHER, SELFPAY ==
[2021-02-23 15:13] LABS: MANUAL DIFF FLAG NO
[2021-02-23 15:15] LABS: Basophils Absolute Auto 0.1 X10*3/uL (0.0-0.2); Basophils Percent Auto 0.5 % (0-2); Eosinophils Absolute Auto 0.3 X10*3/uL (0.0-0.4); Eosinophils Percent Auto 2.5 % (0-4); Hemoglobin 10.8 g/dl (14.0-18.0); Imm Gran Abs Auto 0.05 X10*3/uL (0.00-0.03); Imm Gran Pct Auto 0.4 % (0.0-0.4); Lymphocytes Absolute Auto 1.2 X10*3/uL (1.2-4.9); Lymphocytes Percent Auto 10.2 % (20-40); Mean Corpuscular HGB Conc 32.7 g/dl (31.0-36.0); Mean Corpuscular Hemoglobin 31.4 pg (27.0-33.0); Mean Corpuscular Volume 95.9 fL (80.0-98.0); Mean Platelet Volume 11.4 fL (9.4-12.4); Monocytes Absolute Auto 0.8 X10*3/uL (0.1-1.2); Neutrophils Absolute Auto 9.1 x10*3/uL (2.0-8.3); Neutrophils Percent Auto 79.4 % (45-73); Platelet Count 116 X10*3/uL (160-400); Red Blood Count 3.44 X10*6/uL (4.60-5.80); Red Cell Distribution Width 15.7 % (11.0-16.0); White Blood Count 11.4 X10*3/uL (4.8-10.8)
[2021-02-23 15:26] LABS: Ammonia 69 umol/L (13-55)
[2021-02-23 15:31] LABS: Anion Gap 14 (12-20); Blood Urea Nitrogen 11 mg/dL (9-16); Calcium 8.9 mg/dL (8.4-10.2); Carbon Dioxide 26 mmol/L (22-29); Chloride 102 mmol/L (96-108); Estimated Glomerular Filt Rate > 60; Glucose Random 101 mg/dL (60-115); Potassium 4.5 mmol/L (3.3-5.1); Sodium 137 mmol/L (135-145)
== END 2021-02-23 14:59 | disposition home or self-care (01) ==
LOC: HO.LAB 14:58
PROVIDERS: PCP Family Medicine; Visit Provider Hospitalist
DX: Z00.00 Encounter for general adult medical examination without abnormal findings (principal); K40.90 Unilateral inguinal hernia, without obstruction or gangrene, not specified as recurrent; K72.90 Hepatic failure, unspecified without coma
CPT/HCPCS: 36415; 80048; 82140; 85025

== ENCOUNTER 2021-05-01 14:02 | Outpatient (REF) | payer OTHER, SELFPAY ==
[2021-05-01 14:30] LABS: MANUAL DIFF FLAG NO
[2021-05-01 14:31] LABS: Basophils Percent Auto 0.5 % (0-2); Eosinophils Absolute Auto 0.3 X10*3/uL (0.0-0.4); Eosinophils Percent Auto 4.5 % (0-4); Hematocrit 34.9 % (42.0-52.0); Hemoglobin 11.6 g/dl (14.0-18.0); Imm Gran Abs Auto 0.03 X10*3/uL (0.00-0.03); Imm Gran Pct Auto 0.4 % (0.0-0.4); Lymphocytes Percent Auto 13.8 % (20-40); Mean Corpuscular HGB Conc 33.2 g/dl (31.0-36.0); Mean Corpuscular Hemoglobin 31.9 pg (27.0-33.0); Mean Corpuscular Volume 95.9 fL (80.0-98.0); Mean Platelet Volume 12.3 fL (9.4-12.4); Monocytes Absolute Auto 0.8 X10*3/uL (0.1-1.2); Monocytes Percent Auto 9.9 % (2-11); Neutrophils Absolute Auto 5.4 x10*3/uL (2.0-8.3); Neutrophils Percent Auto 70.9 % (45-73); Platelet Count 107 X10*3/uL (160-400); Red Blood Count 3.64 X10*6/uL (4.60-5.80); Red Cell Distribution Width 16.9 % (11.0-16.0); White Blood Count 7.6 X10*3/uL (4.8-10.8)
[2021-05-01 14:37] LABS: INTERNATIONAL NORM RATIO 1.2 (0.9-1.1); Prothrombin Time 13.7 SEC (9.9-13.0)
[2021-05-01 15:03] LABS: Ammonia 89 umol/L (13-55)
[2021-05-01 15:08] LABS: Alanine Aminotransferase 13 U/L (0-40); Albumin Level 3.2 g/dL (3.5-5.0); Alkaline Phosphatase 104 U/L (39-117); Anion Gap 11 (12-20); Aspartate Amino Transferase 32 U/L (5-37); Bilirubin Direct 0.4 mg/dL (0.0-0.5); Bilirubin Total 0.9 mg/dL (0.0-1.0); Blood Urea Nitrogen 10 mg/dL (9-16); Carbon Dioxide 27 mmol/L (22-29); Chloride 103 mmol/L (96-108); Estimated Glomerular Filt Rate > 60; Glucose Random 99 mg/dL (60-115); Potassium 4.4 mmol/L (3.3-5.1); Sodium 137 mmol/L (135-145); Total Protein 7.3 g/dL (6.5-8.0)
[2021-05-03 12:16] LABS: Alpha Fetoprotein 5.3 ng/mL (<6.1)
== END 2021-05-01 14:03 | disposition home or self-care (01) ==
LOC: HO.LAB 14:02
PROVIDERS: PCP Family Medicine; Visit Provider Internal Medicine
DX: K70.31 Alcoholic cirrhosis of liver with ascites (principal); D64.9 Anemia, unspecified
CPT/HCPCS: 36415; 80048; 80076; 82105; 82140; 85025; 85610

== ENCOUNTER 2021-05-25 12:22 | Outpatient (REF) | payer OTHER, SELFPAY ==
[2021-05-25 13:46] LABS: MANUAL DIFF FLAG NO
[2021-05-25 13:50] LABS: Basophils Percent Auto 0.3 % (0-2); Eosinophils Absolute Auto 0.2 X10*3/uL (0.0-0.4); Eosinophils Percent Auto 3.5 % (0-4); Hematocrit 30.6 % (42.0-52.0); Hemoglobin 10.3 g/dl (14.0-18.0); Imm Gran Abs Auto 0.03 X10*3/uL (0.00-0.03); Imm Gran Pct Auto 0.5 % (0.0-0.4); Lymphocytes Absolute Auto 0.7 X10*3/uL (1.2-4.9); Lymphocytes Percent Auto 12.6 % (20-40); Mean Corpuscular HGB Conc 33.7 g/dl (31.0-36.0); Mean Corpuscular Hemoglobin 31.7 pg (27.0-33.0); Mean Corpuscular Volume 94.2 fL (80.0-98.0); Mean Platelet Volume 12.3 fL (9.4-12.4); Monocytes Absolute Auto 0.6 X10*3/uL (0.1-1.2); Monocytes Percent Auto 10.7 % (2-11); Neutrophils Absolute Auto 4.2 x10*3/uL (2.0-8.3); Neutrophils Percent Auto 72.4 % (45-73); Platelet Count 111 X10*3/uL (160-400); Red Blood Count 3.25 X10*6/uL (4.60-5.80); Red Cell Distribution Width 15.8 % (11.0-16.0); White Blood Count 5.8 X10*3/uL (4.8-10.8)
[2021-05-25 13:57] LABS: Appearance Urine CLEAR; Color Urine YELLOW; Glucose Urine UA NEG (NEG); Leukocyte Esterase Urine NEG (NEG); Nitrite Urine NEG (NEG); Urine Blood NEG (NEG); Urine Ketones NEG (NEG); Urine Protein NEG (NEG-TRACE)
[2021-05-25 14:17] LABS: Alanine Aminotransferase 9 U/L (0-40); Alkaline Phosphatase 98 U/L (39-117); Anion Gap 11 (12-20); Aspartate Amino Transferase 28 U/L (5-37); Bilirubin Total 1.1 mg/dL (0.0-1.0); Blood Urea Nitrogen 5 mg/dL (9-16); Calcium 8.5 mg/dL (8.4-10.2); Carbon Dioxide 28 mmol/L (22-29); Chloride 96 mmol/L (96-108); Estimated Glomerular Filt Rate > 60; Glucose Random 149 mg/dL (60-115); Potassium 3.7 mmol/L (3.3-5.1); Sodium 131 mmol/L (135-145); Total Protein 6.4 g/dL (6.5-8.0)
== END 2021-05-25 12:23 | disposition home or self-care (01) ==
LOC: HO.HMGCLDS 12:22
PROVIDERS: PCP Family Medicine; Visit Provider Family Medicine
DX: Z00.00 Encounter for general adult medical examination without abnormal findings (principal); K72.90 Hepatic failure, unspecified without coma; R82.90 Unspecified abnormal findings in urine
CPT/HCPCS: 36415; 80053; 81003; 85025; 87086

== ENCOUNTER 2021-05-28 09:02 | Outpatient (REF) | payer OTHER, SELFPAY ==
[2021-05-28 09:25] LABS: MANUAL DIFF FLAG NO
[2021-05-28 09:41] LABS: Ammonia 111 umol/L (13-55)
[2021-05-28 09:55] LABS: Basophils Percent Auto 0.6 % (0-2); Eosinophils Absolute Auto 0.2 X10*3/uL (0.0-0.4); Eosinophils Percent Auto 4.2 % (0-4); Hematocrit 29.3 % (42.0-52.0); Hemoglobin 9.7 g/dl (14.0-18.0); Imm Gran Abs Auto 0.03 X10*3/uL (0.00-0.03); Imm Gran Pct Auto 0.6 % (0.0-0.4); Lymphocytes Absolute Auto 0.7 X10*3/uL (1.2-4.9); Mean Corpuscular HGB Conc 33.1 g/dl (31.0-36.0); Mean Corpuscular Hemoglobin 31.8 pg (27.0-33.0); Mean Corpuscular Volume 96.1 fL (80.0-98.0); Mean Platelet Volume 10.9 fL (9.4-12.4); Monocytes Absolute Auto 0.5 X10*3/uL (0.1-1.2); Monocytes Percent Auto 9.5 % (2-11); Neutrophils Absolute Auto 3.9 x10*3/uL (2.0-8.3); Neutrophils Percent Auto 72.1 % (45-73); Red Blood Count 3.05 X10*6/uL (4.60-5.80); White Blood Count 5.5 X10*3/uL (4.8-10.8)
[2021-05-28 09:56] LABS: Platelet Count 97 X10*3/uL (160-400)
[2021-05-28 10:35] LABS: Alanine Aminotransferase 8 U/L (0-40); Alkaline Phosphatase 93 U/L (39-117); Anion Gap 9 (12-20); Aspartate Amino Transferase 26 U/L (5-37); Bilirubin Total 0.8 mg/dL (0.0-1.0); Blood Urea Nitrogen 11 mg/dL (9-16); Calcium 8.8 mg/dL (8.4-10.2); Carbon Dioxide 30 mmol/L (22-29); Chloride 100 mmol/L (96-108); Cholesterol 142 mg/dL; Estimated Glomerular Filt Rate > 60; Glucose Random 150 mg/dL (60-115); HDL Cholesterol 48 mg/dL; LDL Cholesterol Calculated 85 mg/dl; Sodium 135 mmol/L (135-145); Total Protein 6.3 g/dL (6.5-8.0); Triglycerides 47 mg/dL
== END 2021-05-28 09:03 | disposition home or self-care (01) ==
LOC: HO.LAB 09:02
PROVIDERS: PCP Family Medicine; Visit Provider Family Medicine
DX: Z00.00 Encounter for general adult medical examination without abnormal findings (principal); K72.90 Hepatic failure, unspecified without coma; D64.9 Anemia, unspecified
CPT/HCPCS: 36415; 80053; 80061; 82140; 85025

== ENCOUNTER 2021-07-24 09:34 | Outpatient (REF) | payer OTHER, SELFPAY ==
[2021-07-24 10:03] LABS: MANUAL DIFF FLAG NO
[2021-07-24 10:12] LABS: Ammonia 74 umol/L (13-55)
[2021-07-24 10:32] LABS: Basophils Percent Auto 0.6 % (0-2); Eosinophils Absolute Auto 0.2 X10*3/uL (0.0-0.4); Eosinophils Percent Auto 3.9 % (0-4); Hemoglobin 11.2 g/dl (14.0-18.0); Imm Gran Abs Auto 0.03 X10*3/uL (0.00-0.03); Imm Gran Pct Auto 0.6 % (0.0-0.4); Lymphocytes Absolute Auto 0.6 X10*3/uL (1.2-4.9); Lymphocytes Percent Auto 13.3 % (20-40); Mean Corpuscular Hemoglobin 31.9 pg (27.0-33.0); Mean Corpuscular Volume 99.7 fL (80.0-98.0); Mean Platelet Volume 11.4 fL (9.4-12.4); Monocytes Absolute Auto 0.5 X10*3/uL (0.1-1.2); Monocytes Percent Auto 9.5 % (2-11); Neutrophils Absolute Auto 3.5 x10*3/uL (2.0-8.3); Neutrophils Percent Auto 72.1 % (45-73); Red Blood Count 3.51 X10*6/uL (4.60-5.80); White Blood Count 4.8 X10*3/uL (4.8-10.8)
[2021-07-24 10:35] LABS: Platelet Count 88 X10*3/uL (160-400)
[2021-07-24 11:01] LABS: Alanine Aminotransferase 14 U/L (0-40); Albumin Level 3.3 g/dL (3.5-5.0); Alkaline Phosphatase 92 U/L (39-117); Anion Gap 10 (12-20); Aspartate Amino Transferase 29 U/L (5-37); Bilirubin Total 0.7 mg/dL (0.0-1.0); Blood Urea Nitrogen 11 mg/dL (9-16); Calcium 9.3 mg/dL (8.4-10.2); Carbon Dioxide 31 mmol/L (22-29); Chloride 102 mmol/L (96-108); Estimated Glomerular Filt Rate > 60; Glucose Random 105 mg/dL (60-115); Magnesium 1.8 mg/dL (1.6-2.6); Potassium 4.3 mmol/L (3.3-5.1); Sodium 139 mmol/L (135-145); Total Protein 7.1 g/dL (6.5-8.0)
== END 2021-07-24 09:35 | disposition home or self-care (01) ==
LOC: HO.LAB 09:34
PROVIDERS: PCP Family Medicine; Visit Provider Family Medicine
DX: Z00.00 Encounter for general adult medical examination without abnormal findings (principal); K72.90 Hepatic failure, unspecified without coma
CPT/HCPCS: 36415; 80053; 82140; 83735; 85025

== ENCOUNTER 2021-08-07 15:56 | Outpatient (REF) | payer OTHER, SELFPAY ==
[2021-08-07 16:17] LABS: Basophils Percent Auto 0.5 % (0-2); Imm Gran Abs Auto 0.01 X10*3/uL (0.00-0.03); Imm Gran Pct Auto 0.3 % (0.0-0.4); MANUAL DIFF FLAG SCAN; PLT CLUMP 1; Red Cell Distribution Width 14.6 % (11.0-16.0); SCAN SMEAR FLAG 1
[2021-08-07 16:19] LABS: Eosinophils Absolute Auto 0.1 X10*3/uL (0.0-0.4); Eosinophils Percent Auto 2.9 % (0-4); Hematocrit 32.8 % (42.0-52.0); Hemoglobin 10.7 g/dl (14.0-18.0); Lymphocytes Absolute Auto 0.5 X10*3/uL (1.2-4.9); Lymphocytes Percent Auto 13.6 % (20-40); Mean Corpuscular HGB Conc 32.6 g/dl (31.0-36.0); Mean Corpuscular Hemoglobin 31.8 pg (27.0-33.0); Mean Corpuscular Volume 97.3 fL (80.0-98.0); Mean Platelet Volume 11.5 fL (9.4-12.4); Monocytes Absolute Auto 0.5 X10*3/uL (0.1-1.2); Monocytes Percent Auto 13.1 % (2-11); Neutrophils Absolute Auto 2.7 x10*3/uL (2.0-8.3); Neutrophils Percent Auto 69.6 % (45-73); Red Blood Count 3.37 X10*6/uL (4.60-5.80)
[2021-08-07 16:22] LABS: White Blood Count 3.8 X10*3/uL (4.8-10.8)
[2021-08-07 16:23] LABS: Ammonia 36 umol/L (13-55)
[2021-08-07 16:25] LABS: Platelet Count 76 X10*3/uL (160-400)
[2021-08-07 18:48] LABS: SLIDE REVIEW VERIFIED
== END 2021-08-07 15:57 | disposition home or self-care (01) ==
LOC: HO.LAB 15:56
PROVIDERS: PCP Family Medicine; Visit Provider Hospitalist
DX: Z00.00 Encounter for general adult medical examination without abnormal findings (principal); K72.90 Hepatic failure, unspecified without coma
CPT/HCPCS: 36415; 82140; 85025

== ENCOUNTER 2021-10-04 10:05 | Outpatient (REF) | payer OTHER, SELFPAY ==
--- NOTE | ~2021-10-04 | XR_ITS ---
EXAMINATION: XR CHEST CLINICAL INFORMATION: Chest pain COMPARISON: Chest 02/06/2019. TECHNIQUE: 2 views of the chest were obtained. FINDINGS: The lungs are well-expanded and clear of acute pneumonic process. The heart size is normal. There is mild increased bilateral parahilar vascular markings but no congestion seen. No gross bony abnormality seen. XR/XR chest 2V IMPRESSION: Unremarkable chest exam. No change from 02/06/2019.
[2021-10-04 11:02] LABS: MANUAL DIFF FLAG NO
[2021-10-04 11:12] LABS: Ammonia 45 umol/L (13-55)
[2021-10-04 11:26] LABS: Basophils Percent Auto 0.3 % (0-2); Eosinophils Absolute Auto 0.2 X10*3/uL (0.0-0.4); Eosinophils Percent Auto 3.4 % (0-4); Hematocrit 32.5 % (42.0-52.0); Hemoglobin 10.4 g/dl (14.0-18.0); Imm Gran Abs Auto 0.18 X10*3/uL (0.00-0.03); Imm Gran Pct Auto 2.7 % (0.0-0.4); Lymphocytes Absolute Auto 0.6 X10*3/uL (1.2-4.9); Lymphocytes Percent Auto 9.3 % (20-40); Mean Corpuscular Hemoglobin 30.9 pg (27.0-33.0); Mean Corpuscular Volume 96.4 fL (80.0-98.0); Mean Platelet Volume 10.9 fL (9.4-12.4); Monocytes Absolute Auto 0.5 X10*3/uL (0.1-1.2); Monocytes Percent Auto 7.2 % (2-11); Neutrophils Absolute Auto 5.2 x10*3/uL (2.0-8.3); Neutrophils Percent Auto 77.1 % (45-73); Platelet Count 133 X10*3/uL (160-400); Red Blood Count 3.37 X10*6/uL (4.60-5.80); Red Cell Distribution Width 14.4 % (11.0-16.0); White Blood Count 6.8 X10*3/uL (4.8-10.8)
[2021-10-04 11:53] LABS: Alanine Aminotransferase 11 U/L (0-40); Alkaline Phosphatase 87 U/L (39-117); Anion Gap 10 (12-20); Aspartate Amino Transferase 28 U/L (5-37); Bilirubin Total 0.8 mg/dL (0.0-1.0); Blood Urea Nitrogen 5 mg/dL (9-16); Calcium 8.6 mg/dL (8.4-10.2); Carbon Dioxide 29 mmol/L (22-29); Chloride 95 mmol/L (96-108); Estimated Glomerular Filt Rate > 60; Glucose Random 95 mg/dL (60-115); Potassium 4.2 mmol/L (3.3-5.1); Sodium 130 mmol/L (135-145); Total Protein 7.5 g/dL (6.5-8.0)
== END 2021-10-04 10:06 | disposition home or self-care (01) ==
LOC: HO.XRAY 10:05
PROVIDERS: PCP Family Medicine; Visit Provider Family Medicine
DX: Z00.00 Encounter for general adult medical examination without abnormal findings (principal); R10.9 Unspecified abdominal pain; R09.02 Hypoxemia; R09.89 Other specified symptoms and signs involving the circulatory and respiratory systems
CPT/HCPCS: 36415; 71046; 80053; 82140; 85025